=== PATIENT | female | born 1940 | race Caucasian/White ===

== ENCOUNTER → 2016-04-05 | Outpatient (CLI) | payer MEDICARE, BC ==
[~2016-04-05] MED LIST: AMLODIPINE5 MG PO; ANORO IH; BETIMOL 10 ML10 ML OU; CARDI-OMEGA1000 MG PO; CORGARD80 MG PO; HCTZ12.5TAB PO; LIPITOR20 MG PO; LOW DOSE ASPIRI81 MG PO; MICARDIS HCT 121 TA1 PO; PLAVIX 75MG TAB75 MG PO; PRAVASTATIN40 MG PO; PROCARDIA XL 3030 MG PO; TRAVATAN 2.5 M2.5 M1 OU; XALATAN EYE DROPS OD; ZANTAC 150MG T150 MG PO
== END ==
LOC: MC.RAD 09:55
DX: Z12.31 Encounter for screening mammogram for malignant neoplasm of breast (principal)

== ENCOUNTER → 2016-05-04 | Outpatient (CLI) | payer MEDICARE, BC | LOC: COL.VAS 08:19 | DX: N17.8 Other acute kidney failure (principal); R39.198 Other difficulties with micturition ==

== ENCOUNTER 2016-05-26 06:52 | Day surgery (SDC) | payer MEDICARE, BC ==
[2016-05-26] VITALS (14 sets, daily range): BP systolic 103–129; BP diastolic 61–79; PULSE 95–120; TEMP 98–98.1
[~2016-05-26] VITALS: Ht 157.5 cm; Wt 63.6 kg
[~2016-05-26 06:52] MED LIST changes: -ANORO IH; -BETIMOL 10 ML10 ML OU; -HCTZ12.5TAB PO; -LIPITOR20 MG PO; -PLAVIX 75MG TAB75 MG PO; -PROCARDIA XL 3030 MG PO; -XALATAN EYE DROPS OD; -ZANTAC 150MG T150 MG PO
[2016-05-26 07:46] LABS: PROTHROMBIN TIME 10.9 SECONDS (9.7-12.8)
[2016-05-26 07:49] LABS: CREATININE, serum 1.49 mg/dL (0.52-1.25)
[2016-05-26] MEDS ORDERED: PROCARDIA XL 3030 MG PO (08:03)
[2016-05-26] MEDS ORDERED: HCTZ12.5TAB PO (08:04)
[2016-05-26] MEDS ORDERED: LIPITOR20 MG PO (08:43)
[2016-05-26] MEDS ORDERED: XALATAN EYE DROPS OD (08:45)
[2016-05-26] MEDS ORDERED: BETIMOL 10 ML10 ML OU (08:46)
[2016-05-26] MEDS ORDERED: ANORO IH (08:46)
[2016-05-26] MEDS ORDERED: ZANTAC 150MG T150 MG PO (08:47)
[2016-05-26] MEDS ORDERED: PLAVIX 75MG TAB75 MG PO (18:55)
== END 2016-05-27 08:07 | disposition home or self-care (01) ==
LOC: COL.CAR 06:52
PROVIDERS: Radiology Diagnostic Radiology
DX: I70.1 Atherosclerosis of renal artery (principal)
CPT/HCPCS: C1725; C1769; C1876; C1887; J1644; J2250; J2405; J3010; J7120; Q9967

== ENCOUNTER → 2017-04-05 | Outpatient (CLI) | payer MEDICARE, BC ==
[~2017-04-05] MED LIST changes: +ANORO IH; +BETIMOL 10 ML10 ML OU; +HCTZ12.5TAB PO; +LIPITOR20 MG PO; +PLAVIX 75MG TAB75 MG PO; +PROCARDIA XL 3030 MG PO; +XALATAN EYE DROPS OD; +ZANTAC 150MG T150 MG PO
== END ==
LOC: COL.VAS 08:47
DX: I65.23 Occlusion and stenosis of bilateral carotid arteries (principal); Z98.890 Other specified postprocedural states

== ENCOUNTER → 2017-10-09 | Outpatient (CLI) | payer MEDICARE, BC | LOC: COL.CARD 09:38 | DX: I15.0 Renovascular hypertension (principal) ==

== ENCOUNTER → 2018-05-14 | Outpatient (CLI) | payer MEDICARE, BC | LOC: MC.RAD 11:24 | DX: Z12.31 Encounter for screening mammogram for malignant neoplasm of breast (principal) ==

== ENCOUNTER → 2019-01-02 | Outpatient (CLI) | payer MEDICARE, BC | LOC: COL.RAD 14:11 | DX: I67.82 Cerebral ischemia (principal) ==

== ENCOUNTER → 2019-01-18 | Outpatient (CLI) | payer MEDICARE, BC | LOC: COL.CARD 07:43 | DX: I69.920 Aphasia following unspecified cerebrovascular disease (principal); I08.1 Rheumatic disorders of both mitral and tricuspid valves ==

== ENCOUNTER 2019-02-04 11:30 | Outpatient (RCR) | payer MEDICARE, BC | END 2019-04-29 | disposition home or self-care (01) | LOC: WSST | DX: F80.1 Expressive language disorder (principal) ==

== ENCOUNTER → 2021-07-07 | Outpatient (CLI) | payer MEDICARE, BC | LOC: COL.VAS 11:04 | DX: I65.23 Occlusion and stenosis of bilateral carotid arteries (principal) ==

== ENCOUNTER 2022-11-09 14:30 | Outpatient (RCR) | payer MEDICARE, BC | END 2022-11-12 | disposition home or self-care (01) | LOC: MKS.ESL.PT | DX: R53.81 Other malaise (principal); M47.16 Other spondylosis with myelopathy, lumbar region ==

== ENCOUNTER 2022-12-14 08:19 | Outpatient (RCR) | payer MEDICARE, BC | END 2023-01-12 | disposition home or self-care (01) | LOC: MKS.ESL.PT | DX: M47.816 Spondylosis without myelopathy or radiculopathy, lumbar region (principal); R53.81 Other malaise ==

== ENCOUNTER 2023-01-31 15:25 | Outpatient (RCR) | payer MEDICARE, BC | END 2023-02-12 | disposition home or self-care (01) | LOC: COL.CR | DX: J44.9 Chronic obstructive pulmonary disease, unspecified (principal) ==

== ENCOUNTER 2023-03-14 16:25 | Outpatient (RCR) | payer MEDICARE, BC | END 2023-03-15 | disposition home or self-care (01) | LOC: COL.CR | DX: J44.9 Chronic obstructive pulmonary disease, unspecified (principal) ==

== ENCOUNTER → 2023-04-13 | Outpatient (RCR) | payer MEDICARE, BC | END | disposition home or self-care (01) | LOC: COL.CR | DX: J44.9 Chronic obstructive pulmonary disease, unspecified (principal) ==

== ENCOUNTER 2023-10-25 12:22 | Emergency (ER) | payer MEDICARE, BC ==
[~2023-10-25] VITALS: Ht 160 cm; Wt 53.2 kg
[2023-10-25] MEDS ORDERED: TOPROL XL 25MG25 MG PO (12:37)
[2023-10-25] MEDS ORDERED: NORVASC 5MG5 MG/TAB PO (12:37)
[2023-10-25 12:44] LABS: BASO # 0.1 K/mm3 (0.0-0.2); BASO % 0.5 % (0.0-2.0); EOS # 0.3 K/mm3 (0.0-0.7); EOS % 2.9 % (0.0-4.0); GRAN # 6.8 K/mm3 (1.4-6.5); GRAN % 66.5 % (42.2-75.2); HEMATOCRIT 39.8 % (37.0-47.0); LYMPH # 2.1 K/mm3 (1.2-3.4); LYMPH % 20.3 % (20.0-51.0); MEAN CELL VOLUME 100 fl (80.0-100.0); MEAN CORPUSCULAR HEMOGLOBIN 33 pg (27-31); MEAN CORPUSCULAR HGB CONC 33 g/dl (33.0-37.0); MEAN PLATELET VOLUME 12.7 fl (7.4-10.4); MONO % 9.5 % (1.7-9.3); PLATELET COUNT 187 K/mm3 (130-400); RED BLOOD COUNT 3.97 M/mm3 (4.10-5.30); REDCELL DISTRIBUTION WIDTH-CV 12.7 % (11.5-14.5)
[2023-10-25] MEDS ORDERED: Morphine 4 MG/ML VIAL IV ONE ×2 (12:45→14:15)
[2023-10-25] MEDS ORDERED: Tenecteplase 50 MG/10 ML VIAL (after reconstitution) IV ONE (12:45)
[2023-10-25] MEDS ORDERED: NS 1,000 ML IV ONE (13:00)
[2023-10-25 13:09] LABS: ALBUMIN 3.7 g/dL (3.4-4.8); BILIRUBIN,TOTAL 0.7 mg/dL (0.2-1.2); CALCIUM 9.7 mg/dL (8.4-10.2); CREATININE, serum 1.41 mg/dL (0.57-1.11); TOTAL PROTEIN 7.2 g/dl (6.2-8.1)
[2023-10-25] MEDS ORDERED: Clopidogrel 75 MG TAB PO ONE (13:15)
[2023-10-25] MEDS ORDERED: Heparin 5,000 UNITS/ML 1 ML VIAL IV ONE (13:15)
[2023-10-25] MEDS ORDERED: Heparin 5,000 UNITS/ML 1 ML VIAL IV PRN (13:15)
[2023-10-25] MEDS ORDERED: Ondansetron 4 MG/2 ML VIAL IV ONE (13:15)
[2023-10-25] MEDS ORDERED: Heparin/D5W 250 ML IV SCH (13:15)
[2023-10-25 13:24] LABS: URINE APPEARANCE CLEAR (CLEAR/HAZY); URINE BLOOD NEGATIVE (NEGATIVE); URINE COLOR YELLOW (YELLOW); URINE GLUCOSE TRACE (NEGATIVE); URINE KETONE NEGATIVE (NEGATIVE); URINE NITRATE NEGATIVE (NEGATIVE); URINE PROTEIN(semi-quant) NEGATIVE (NEGATIVE)
[2023-10-25 13:27] LABS: PARTIAL THROMBOPLASTIN TIME 27.5 SECONDS (26.0-37.0)
[2023-10-25 13:28] LABS: COLLECTION METHOD CLEAN CATCH
[2023-10-25 14:24] VITALS: BP 117/71; PULSE 84
== END 2023-10-25 14:15 | disposition short-term general hospital (02) ==
LOC: COL.ER 12:22
PROVIDERS: Family Medicine
DX: I21.3 ST elevation (STEMI) myocardial infarction of unspecified site (principal); Z98.61 Coronary angioplasty status
CPT/HCPCS: A4314; J1644; J2270; J2405; J3101; J7030

== ENCOUNTER 2023-10-29 00:13 | Emergency (ER) | payer MEDICARE, BC ==
[~2023-10-29 00:13] MED LIST changes: +NORVASC 5MG5 MG/TAB PO; +TOPROL XL 25MG25 MG PO
[2023-10-29 00:18] VITALS: TEMP 98
[2023-10-29] MEDS ORDERED: Heparin 5,000 UNITS/ML 1 ML VIAL IV ONE (00:30)
[2023-10-29] MEDS ORDERED: Heparin 5,000 UNITS/ML 1 ML VIAL IV PRN (00:30)
[2023-10-29] MEDS ORDERED: Heparin/D5W 250 ML IV SCH (00:30)
[2023-10-29 00:57] LABS: HEMOGLOBIN 11.6 g/dl (12.5-16.0); MEAN CELL VOLUME 102 fl (80.0-100.0); MEAN CORPUSCULAR HEMOGLOBIN 34 pg (27-31); MEAN CORPUSCULAR HGB CONC 33 g/dl (33.0-37.0); PLATELET COUNT 187 K/mm3 (130-400); RED BLOOD COUNT 3.46 M/mm3 (4.10-5.30); REDCELL DISTRIBUTION WIDTH-CV 12.9 % (11.5-14.5)
[2023-10-29 01:00] LABS: HEMATOCRIT 35.4 % (37.0-47.0)
[2023-10-29 01:12] LABS: PROTHROMBIN TIME 10.5 SECONDS (9.7-12.8)
[2023-10-29] MEDS ORDERED: Furosemide 40 MG/4 ML VIAL IV ONE (01:15)
[2023-10-29 01:17] LABS: ALANINE AMINOTRANSFERASE 69 U/L (0-55); ALBUMIN 3.3 g/dL (3.4-4.8); ALKALINE PHOSPHATASE 108 U/L (40-150); ANION GAP 14 mmol/L (7-16); AST,SGOT 92 U/L (5-34); BILIRUBIN,TOTAL 0.7 mg/dL (0.2-1.2); BLOOD UREA NITROGEN 24 mg/dL (10-20); CALCIUM 9.3 mg/dL (8.4-10.2); CHLORIDE 97 mEq/L (98-107); CREATININE, serum 1.39 mg/dL (0.57-1.11); GLUCOSE 169 mg/dL (70-99); SODIUM 131 mEq/L (136-145); TOTAL PROTEIN 7.9 g/dl (6.2-8.1)
[2023-10-29 01:19] LABS: COLLECTION METHOD IN
[2023-10-29 01:27] LABS: PARTIAL THROMBOPLASTIN TIME 167.8 SECONDS (26.0-37.0)
[2023-10-29 01:28] LABS: URINE APPEARANCE CLOUDY (CLEAR/HAZY); URINE BLOOD NEGATIVE (NEGATIVE); URINE COLOR YELLOW (YELLOW); URINE GLUCOSE NEGATIVE (NEGATIVE); URINE KETONE TRACE (NEGATIVE); URINE NITRATE NEGATIVE (NEGATIVE); URINE PROTEIN(semi-quant) TRACE (NEGATIVE); URINE UROBILINOGEN 0.2 E.U/dL (0.2-1.0)
[2023-10-29 01:34] LABS: TROPONIN-I 15.318 ng/mL (0.00-0.033)
[2023-10-29 01:38] LABS: EOSINOPHIL 2 % (0-4); LYMPHOCYTE 15 % (20.0-51.0); NEUTROPHILS 76 % (42.0-75.2)
[2023-10-29 01:39] LABS: PLATELET ESTIMATE NORMAL (NORMAL)
[2023-10-29 01:45] VITALS: BP 109/70; PULSE 111
== END 2023-10-29 01:50 | disposition short-term general hospital (02) ==
LOC: COL.ER 00:13
PROVIDERS: Emergency Medicine
DX: I50.9 Heart failure, unspecified (principal)
CPT/HCPCS: A4314; J1644; J1940